=== PATIENT | female | born 1965 | race African-American/Black ===

== ENCOUNTER 2021-08-27 18:06 | Emergency (ER) | payer MEDICAID, OTHER ==
[~2021-08-27] VITALS: Ht 170.2 cm; Wt 99.0 kg
[2021-08-27 18:09] VITALS: BP 155/82
== END 2021-08-27 21:58 | disposition home or self-care (01) ==
LOC: ER 18:06
DX: S40.012A Contusion of left shoulder, initial encounter (principal); R20.2 Paresthesia of skin; W22.8XXA Striking against or struck by other objects, initial encounter; Y93.89 Activity, other specified; Y92.512 Supermarket, store or market as the place of occurrence of the external cause
CPT/HCPCS: 73030; 99284